=== PATIENT | female | born 1955 | race Caucasian/White ===

== ENCOUNTER 2016-09-26 13:34 | Inpatient (IN) | payer OTHER ==
[2016-09-26] VITALS (9 sets, daily range): BP systolic 116–139; BP diastolic 65–82; PULSE 70–78; TEMP 36.4–37; O2SAT 90–96; Ht 160 cm; Wt 72.0 kg
[~2016-09-26] VITALS: Ht 160 cm; Wt 72.0 kg
[2016-09-26] MEDS ORDERED: NURSING VERBAL MED ORDER ONE (14:15)
[2016-09-26] MEDS ORDERED: SIMV40TA2 PO (14:16)
[2016-09-26] MEDS ORDERED: THY/30 PO (14:16)
[2016-09-26] MEDS ORDERED: SERT-234 PO (14:16)
[2016-09-26] MEDS ORDERED: ONDANSETRON INJ 2 MG/ML 2 ML VIAL IV PRN ×2 (14:30→16:00)
[2016-09-26] MEDS ORDERED: NALOXONE HCL 0.4 MG/1 ML VIAL/CARP IV PRN ×2 (14:30→16:00)
[2016-09-26] MEDS: SODIUM CHLORIDE 0.9% 1000ML 1,000 ML IV SCH (15:05)
[2016-09-26] MEDS: MORPHINE SULFATE 1 MG/ML 50 ML PCA SYR IV PRN ×3 (15:09→22:57)
[2016-09-26] MEDS ORDERED: SODIUM CHLORIDE 0.9% 1000ML 1,000 ML IV SCH (15:53)
[2016-09-26] MEDS ORDERED: HYDROmorphone HCL 0.5MG/ML 50 ML CASSETTE IV PRN (16:00)
--- NOTE | 2016-09-26 16:04 | DIAGNOSTIC IMAGING REPORT ---
ULTRASOUND VENOUS DOPPLER LWR EXT BILA CLINICAL HISTORY: Leg swelling. Diminished ambulation. COMPARISON STUDY: No previous studies for comparison. FINDINGS: Real-time and color flow Doppler imaging were performed. Flow was seen within the femoral, popliteal and calf veins with no intraluminal thrombus demonstrated. The saphenous vein is patent. IMPRESSION: No evidence of lower extremity DVT. Electronically signed by: Geremias Solorio M.D. 09/26/2016 4:02 PM Dictated Date/Time: 09/26/2016 4:02 PM
--- NOTE | 2016-09-26 16:21 | DIAGNOSTIC IMAGING REPORT ---
CHEST 2 VIEWS ROUTINE CLINICAL HISTORY: Preoperative chest COMPARISON STUDY: No previous studies for comparison. FINDINGS: The heart is at the upper limits of normal in size. There is no failure. There is no focal pulmonary consolidation. There are no pleural effusions. There is mild interstitial thickening. There is an 8 mm nodule at the right lung base versus vascular summation.[ IMPRESSION: 1. 8 mm nodule at the right lung base versus vascular summation. A nonemergent CT scan is recommended in follow-up. 2. No evidence of focal pulmonary consolidation Electronically signed by: Geremias Solorio M.D. 09/26/2016 4:19 PM Dictated Date/Time: 09/26/2016 4:17 PM
[2016-09-26] MEDS ORDERED: IV FLUIDS COMPLETED PRN (17:00)
[2016-09-26 17:09] LABS: BASO % 0.7 %; BASO ABS # 0.04 K/uL (0-0.2); COMPLETE YES; EOS % 5.7 %; HEMATOCRIT 40.2 % (37-47); IG% 0.3 %; LYMPH % 41.8 %; LYMPH ABS # 2.41 K/uL (1.2-3.4); MEAN CELL VOLUME 92.4 fL (80-100); MEAN CORPUSCULAR HEMOGLOBIN 32.9 pg (25-34); MEAN CORPUSCULAR HGB CONC 35.6 g/dl (32-36); MEAN PLATELET VOLUME 8.8 fL (7.4-10.4); NEUT % 43.5 %; PLATELET COUNT 366 K/uL (130-400); RED BLOOD COUNT 4.35 M/uL (4.2-5.4); WHITE BLOOD COUNT 5.77 K/uL (4.8-10.8)
--- NOTE | 2016-09-26 17:38 | Medical Consult ---
Consultation Date of Consultation: Sep 26, 2016. Attending Physician: Fernando Diaz M.D. Reason for Consultation: Preop clearance History of Present Illness Patient is a pleasant 61 y/o female, with PMHx of hyperlipidemia, hypothyroidism , and depression, consulted for preop clearance. Approximately 6 weeks ago, patient woke up and fell secondary to left lower extremity. She reported to ED in [place], where an MRI was reported as "abnormal" (patient is unsure of medical term/no records available). Since that time, she has been in and out of the hospital due to lower back pain, radiating to left lower extremity w/ numbness/tingling and weakness. She has received Steroid treatment and pain management with little relief in her symptoms. Patient has been following w/ Dr. Diaz and is planning for surgical intervention. Currently, patient states she is comfortable, with no significant pain. She is anxious about the upcoming events. She denies any cardiac history; CAD, MS, heart cath, heart arrhythmia, or ever following with cardiology. She denies any h/o DVT/PE, TIA/ CVA. She denies h/o of COPD/asthma; she does smoke 1 pack per day. She denies any recent hospitalizations due to acute illnesses (excluding current issue). She has had 2 surgeries in the past, hysterectomy and cholecystectomy, and tolerated both well with no complications. +numbness/tingling/weakness to LLE. + muscle/joint pain to lower back. +Anxiety. Patient denies any fever, chills, sweats, lightheadedness, dizziness, vision changes, CP, palpitations, edema, SOB , wheezing, cough, abdominal pain, nausea, vomiting, diarrhea, urinary symptoms , melena, depression, active bleeding, or new skin discoloration/changes. Past Medical/Surgical History Medical hx: Hyperlipidemia Hypothyroidism Depression Surgical hx: Hysterectomy Cholecystectomy Family History Father- Heart disease, TIA Social History Smoking Status: Current Every Day Smoker (1 pack per day) Alcohol Use: occasionally Allergies Coded Allergies: Aspirin (Verified Allergy, Unknown, HIVES, 09/26/16) Caffeine (Verified Allergy, Unknown, ELEVATED HEART RATE, 09/26/16) Penicillins (Verified Allergy, Unknown, HIVES, 09/26/16) Home Medications Reported Home Medications Medications Dose Route/Sig Max Daily Dose Days Date Category Zoloft (Sertraline HCl) 100 Mg Tab 100 Mg PO DAILY 09/26/16 Reported Zocor (Simvastatin) 40 Mg Tab 40 Mg PO QPM 09/26/16 Reported [place] Thyroid (Thyroid) 30 Mg Tab 1 Tab PO DAILY 90 09/26/16 Reported Current Inpatient Medications Current Inpatient Medications Medications (Trade) Dose Ordered Sig/Yinka Route Start Time Stop Time Status Last Admin Dose Admin Naloxone HCl (Narcan Inj) 0.1 mg Q5M PRN IV 09/26/16 14:30 10/10/16 14:29 Morphine Sulfate 50 mg 50 mg PRN PRN IV 09/26/16 14:30 10/10/16 14:29 09/26/16 15:09 50 MG Sodium Chloride (Nss 1000ml) 1,000 ml @ 15 mls/hr Q24H IV 09/26/16 14:30 10/10/16 14:29 09/26/16 15:05 15 MLS/HR Ondansetron HCl (Zofran Inj) 4 mg Q8H PRN IV 09/26/16 14:30 10/26/16 14:29 Acetaminophen (Tylenol Tab) 650 mg Q6H PRN PO 09/26/16 16:00 10/26/16 15:59 Docusate Sodium (coLACE CAP) 100 mg BID PO 09/26/16 21:00 10/26/16 20:59 Oxycodone/ Acetaminophen (Percocet 5-325mg Tab) Moderate to Severe magaly... Q4H PRN PO 09/26/16 16:00 10/10/16 15:59 Sertraline HCl (Zoloft Tab) 100 mg DAILY PO 09/27/16 09:00 10/27/16 08:59 Simvastatin (Zocor Tab) 40 mg QPM PO 09/26/16 21:00 10/26/16 20:59 Thyroid ([place] Thyroid Tab) 30 mg DAILY PO 09/27/16 09:00 10/27/16 08:59 Miscellaneous (Iv Fluids Completed) 1 ea PRN PRN N/A 09/26/16 17:00 09/26/17 16:59 Review of Systems Constitutional: No chills, No fever Respiratory: No cough, No sputum Cardiovascular: No chest pain, No orthopnea Abdomen: + constipation, No nausea, No pain, No vomiting Musculoskeletal: + muscle pain, No joint pain, No swelling Genitourinary - Female: No dysuria, No urinary frequency Neurologic: No memory loss, No paralysis Psychiatric: No anhedonism, No depression symptoms Endocrine: No excessive thirst, No fatigue Physical Exam Date Time Temp Pulse Resp B/P Pulse Ox O2 Delivery O2 Flow Rate FiO2 09/26/16 17:15 36.7 70 18 127/82 94 Room Air 09/26/16 16:22 36.7 70 18 139/81 94 Room Air 09/26/16 16:15 96 Room Air 09/26/16 15:16 37.0 71 16 116/65 96 Room Air 09/26/16 14:37 Room Air 09/26/16 13:50 36.6 78 18 121/77 93 Room Air General Appearance: no apparent distress Head: normocephalic, atraumatic Eyes: normal inspection, PERRL ENT: hearing grossly normal Neck: supple Respiratory/Chest: lungs clear, no respiratory distress, no accessory muscle use Cardiovascular: regular rate, rhythm Abdomen/GI: normal bowel sounds, non tender, soft Back: normal inspection Extremities/Musculoskelatal: no calf tenderness, no pedal edema Neurologic/Psych: alert, normal mood/affect, oriented x 3 Skin: normal color, warm/dry, no rash Laboratory Results Last 24 Hours Test 09/26/16 16:28 White Blood Count 5.77 K/uL Red Blood Count 4.35 M/uL Hemoglobin 14.3 g/dL Hematocrit 40.2 % Mean Corpuscular Volume 92.4 fL Mean Corpuscular Hemoglobin 32.9 pg Mean Corpuscular Hemoglobin Concent 35.6 g/dl Platelet Count 366 K/uL Mean Platelet Volume 8.8 fL Neutrophils (%) (Auto) 43.5 % Lymphocytes (%) (Auto) 41.8 % Monocytes (%) (Auto) 8.0 % Eosinophils (%) (Auto) 5.7 % Basophils (%) (Auto) 0.7 % Neutrophils # (Auto) 2.51 K/uL Lymphocytes # (Auto) 2.41 K/uL Monocytes # (Auto) 0.46 K/uL Eosinophils # (Auto) 0.33 K/uL Basophils # (Auto) 0.04 K/uL RDW Standard Deviation 41.0 fL RDW Coefficient of Variation 12.0 % Immature Granulocyte % (Auto) 0.3 % Immature Granulocyte # (Auto) 0.02 K/uL Assessment & Plan 61 y/o female, with PMHx of hyperlipidemia, hypothyroidism, and depression, consulted for preop clearance for surgical intervention by Dr. Diaz - Pain management as per primary team Preop clearance- after reviewing patient, she is medically acceptable for upcoming procedure: - Stable vitals - EKG- NSR - CXR- 8 mm nodule at the right lung base versus vascular summation. A nonemergent CT scan is recommended in follow-up. No evidence of focal pulmonary consolidation - Lower left extremity US due to edema/diminished ambulation- no evidence of DVT - Labs reviewed- unremarkable Hypothyroidism: Continue Thyroid 30 mg daily Hyperlipidemia: Continue Zocor 40 mg daily Depression: Continue Zoloft 100 mg daily DVT prophylaxis: As per primary team Code Status: LEVEL I, FULL Dispo: From home. Discharge as per primary team Thank you for this consultation. PA Physician Supervision Note: I interviewed and examined the patient. Discussed with Hetal CRUZ and agree with findings and plan as documented in the note. Any exceptions or clarifications are listed here: None Medical assessment suggest is risk minimized and can proceed to surgery at surgery preference vitals are stable car is regular lungs are clear continue maintainence meds and surgery evaluation Documented By: Pa Morgan
[2016-09-26 17:40] LABS: BUN/CREATININE RATIO 13.2 (10-20); CALCIUM 9.4 mg/dl (8.5-10.1); CREATININE 0.77 mg/dl (0.60-1.20); POTASSIUM 3.9 mmol/L (3.5-5.1)
[2016-09-26 17:42] LABS: ALB/GLOB RATIO 0.8 (0.9-2)
[2016-09-26] MEDS ORDERED: TRAZODONE HCL 50 MG TAB PO PRN (20:45)
[2016-09-26] MEDS ORDERED: LORAZEPAM 2 MG/ML 1 ML VIAL IV PRN ×2 (20:45)
[2016-09-26] MEDS: SIMVASTATIN 40 MG TAB PO SCH (20:49)
[2016-09-26] MEDS: DOCUSATE SODIUM 100 MG CAP PO SCH (20:49)
[2016-09-26] MEDS ORDERED: LORAZEPAM INJ 1 MG in SYRINGE 0.5 ML IV PRN (21:00)
[2016-09-26] MEDS: LORAZEPAM 0.5 MG TAB PO PRN (23:41)
[2016-09-27] VITALS (7 sets, daily range): BP systolic 104–110; BP diastolic 66–72; PULSE 70–76; TEMP 36.5–37.1; O2SAT 86–95
[2016-09-27] MEDS: MORPHINE SULFATE 1 MG/ML 50 ML PCA SYR IV PRN ×4 (02:33→23:12)
[2016-09-27] MEDS: DOCUSATE SODIUM 100 MG CAP PO SCH ×2 (09:30→21:57)
[2016-09-27] MEDS: ARMOUR THYROID 30 MG TAB PO SCH (09:30)
[2016-09-27] MEDS: SERTRALINE HCL 100 MG TAB PO SCH (09:31)
--- NOTE | 2016-09-27 14:26 | Progress Note ---
Subjective Date of Service: Sep 27, 2016. Subjective Pt evaluation today including: conversation w/ patient, physical exam, review of inpatient medication list Pain: using WELDING OPERATOR for back pain PO Intake: adequate Voiding: no voiding problems patient still with back pain, WELDING OPERATOR helps plan for possible OR on Thursday no issues overnight discussed finding of possible lung nodule on CXR, recommend CT chest outpatient , she is a smoker Review of Systems Musculoskeletal: + joint pain (back) All Other Systems: Reviewed and Negative Medications Current Inpatient Medications Medications (Trade) Dose Ordered Sig/Yinka Route Start Time Stop Time Status Last Admin Dose Admin Naloxone HCl (Narcan Inj) 0.1 mg Q5M PRN IV 09/26/16 14:30 10/10/16 14:29 Morphine Sulfate 50 mg 50 mg PRN PRN IV 09/26/16 14:30 10/10/16 14:29 09/27/16 07:03 50 MG Sodium Chloride (Nss 1000ml) 1,000 ml @ 15 mls/hr Q24H IV 09/26/16 14:30 10/10/16 14:29 09/26/16 15:05 15 MLS/HR Ondansetron HCl (Zofran Inj) 4 mg Q8H PRN IV 09/26/16 14:30 10/26/16 14:29 09/27/16 12:49 4 MG Acetaminophen (Tylenol Tab) 650 mg Q6H PRN PO 09/26/16 16:00 10/26/16 15:59 Docusate Sodium (coLACE CAP) 100 mg BID PO 09/26/16 21:00 10/26/16 20:59 09/27/16 09:30 100 MG Oxycodone/ Acetaminophen (Percocet 5-325mg Tab) Moderate to Severe magaly... Q4H PRN PO 09/26/16 16:00 10/10/16 15:59 Sertraline HCl (Zoloft Tab) 100 mg DAILY PO 09/27/16 09:00 10/27/16 08:59 09/27/16 09:31 100 MG Simvastatin (Zocor Tab) 40 mg QPM PO 09/26/16 21:00 10/26/16 20:59 09/26/16 20:49 40 MG Thyroid ([place] Thyroid Tab) 30 mg DAILY PO 09/27/16 09:00 10/27/16 08:59 09/27/16 09:30 30 MG Miscellaneous (Iv Fluids Completed) 1 ea PRN PRN N/A 09/26/16 17:00 09/26/17 16:59 Trazodone HCl (Desyrel Tab) 25 mg HS PRN PO 09/26/16 20:45 10/26/16 20:44 09/27/16 01:29 25 MG Lorazepam 0.5 mg 0.5 mg Q6 PRN PO 09/26/16 20:45 10/26/16 20:44 09/26/16 23:41 0.5 MG Lorazepam 0.5 mg/ Syringe 0.5 ml @ 0.5 mls/min Q4H PRN IV 09/26/16 21:00 10/26/16 20:59 Lorazepam/Syringe (Ativan Inj/ Syringe) 1 ml @ 1 mls/min Q4H PRN IV 09/26/16 21:00 10/26/16 20:59 Objective Vital Signs Date Time Temp Pulse Resp B/P Pulse Ox O2 Delivery O2 Flow Rate FiO2 09/27/16 11:42 37.0 70 18 110/68 95 Room Air 09/27/16 09:28 94 Room Air 09/27/16 08:51 Room Air 09/27/16 07:40 36.5 70 18 104/72 94 Room Air 09/27/16 03:28 36.7 71 16 105/72 90 Room Air 09/26/16 23:35 92 Room Air 09/26/16 23:22 36.6 70 16 116/76 90 Room Air 09/26/16 19:30 Room Air 09/26/16 18:18 36.9 71 17 119/79 92 Room Air 09/26/16 18:14 36.4 71 18 126/79 94 Room Air 09/26/16 17:15 36.7 70 18 127/82 94 Room Air 09/26/16 16:22 36.7 70 18 139/81 94 Room Air 09/26/16 16:15 96 Room Air 09/26/16 15:16 37.0 71 16 116/65 96 Room Air 09/26/16 14:37 Room Air Physical Exam General Appearance: WD/WN, no apparent distress Neck: supple, no adenopathy, no JVD, trachea midline Respiratory/Chest: chest non-tender, lungs clear, normal breath sounds, no respiratory distress, no accessory muscle use Cardiovascular: regular rate, rhythm, no edema, no gallop, no JVD, no murmur Abdomen: normal bowel sounds, non tender, soft, no organomegaly Extremities: normal inspection, no pedal edema, no calf tenderness, normal capillary refill, pelvis stable, + pertinent finding (severe back pain, decreased ROM) Neurologic/Psychiatric: accountant tax II-XII nml as tested, no motor/sensory deficits, alert, normal mood/affect, oriented x 3 Skin: normal color, warm/dry, no rash Lymphatic: no adenopathy Laboratory Results Last 24 Hours Test 09/26/16 16:28 White Blood Count 5.77 K/uL Red Blood Count 4.35 M/uL Hemoglobin 14.3 g/dL Hematocrit 40.2 % Mean Corpuscular Volume 92.4 fL Mean Corpuscular Hemoglobin 32.9 pg Mean Corpuscular Hemoglobin Concent 35.6 g/dl Platelet Count 366 K/uL Mean Platelet Volume 8.8 fL Neutrophils (%) (Auto) 43.5 % Lymphocytes (%) (Auto) 41.8 % Monocytes (%) (Auto) 8.0 % Eosinophils (%) (Auto) 5.7 % Basophils (%) (Auto) 0.7 % Neutrophils # (Auto) 2.51 K/uL Lymphocytes # (Auto) 2.41 K/uL Monocytes # (Auto) 0.46 K/uL Eosinophils # (Auto) 0.33 K/uL Basophils # (Auto) 0.04 K/uL RDW Standard Deviation 41.0 fL RDW Coefficient of Variation 12.0 % Immature Granulocyte % (Auto) 0.3 % Immature Granulocyte # (Auto) 0.02 K/uL Sodium Level 142 mmol/L Potassium Level 3.9 mmol/L Chloride Level 107 mmol/L Carbon Dioxide Level 31 mmol/L Anion Gap 4.0 mmol/L Blood Urea Nitrogen 10 mg/dl Creatinine 0.77 mg/dl Est Creatinine Clear Calc Drug Dose 74.8 ml/min Estimated GFR () 98.0 Estimated GFR (Non- 84.5 BUN/Creatinine Ratio 13.2 Random Glucose 94 mg/dl Calcium Level 9.4 mg/dl Total Bilirubin 0.3 mg/dl Aspartate Amino Transf (AST/SGOT) 20 U/L Alanine Aminotransferase (ALT/SGPT) 43 U/L Alkaline Phosphatase 95 U/L Total Protein 8.0 gm/dl Albumin 3.5 gm/dl Globulin 4.5 gm/dl Albumin/Globulin Ratio 0.8 Hepatitis C Antibody Screen NEG Assessment and Plan 61 y/o female, with PMHx of hyperlipidemia, hypothyroidism, and depression, consulted for preop clearance for surgical intervention by Dr. Diaz - Pain management as per primary team, currently on WELDING OPERATOR - surgery tentatively for Friday 09/29 Preop clearance- after reviewing patient, she is medically acceptable for upcoming procedure and currently optimized vitals stable, labs normal, CXR with 8mm nodule right base? see below no evidence of DVT in lower legs acceptable for the OR on Thursday Right lower lung 8mm nodule? she is smoker so high risk for malignancy NEEDS TO HAVE A CT SCAN CHEST OUTPATIENT Hypothyroidism: Continue Thyroid 30 mg daily Hyperlipidemia: Continue Zocor 40 mg daily Depression: Continue Zoloft 100 mg daily DVT prophylaxis: As per primary team Code Status: LEVEL I, FULL Dispo: From home. Discharge as per primary team no acute medical issues, cleared for surgery, will sign off, please re-consult if any new issues arise PLEASE HAVE PATIENT GET OUTPATIENT CT CHEST ONCE BACK HOME
[2016-09-27] MEDS: ACETAMINOPHEN 325 MG TAB PO PRN (14:27)
[2016-09-27] MEDS: LORAZEPAM 0.5 MG TAB PO PRN ×2 (14:27→21:56)
[2016-09-27] MEDS: SODIUM CHLORIDE 0.9% 1000ML 1,000 ML IV SCH (14:28)
[2016-09-27] MEDS: SIMVASTATIN 40 MG TAB PO SCH (21:57)
[2016-09-28] VITALS (7 sets, daily range): BP systolic 108–122; BP diastolic 64–75; PULSE 63–77; TEMP 36.6–37.1; O2SAT 75–96
[2016-09-28] MEDS: MORPHINE SULFATE 1 MG/ML 50 ML PCA SYR IV PRN ×5 (04:50→23:01)
[2016-09-28] MEDS: DOCUSATE SODIUM 100 MG CAP PO SCH ×2 (08:59→20:35)
[2016-09-28] MEDS: ARMOUR THYROID 30 MG TAB PO SCH (08:59)
[2016-09-28] MEDS: SERTRALINE HCL 100 MG TAB PO SCH (08:59)
[2016-09-28] MEDS: LORAZEPAM 0.5 MG TAB PO PRN (10:30)
[2016-09-28] MEDS: SODIUM CHLORIDE 0.9% 1000ML 1,000 ML IV SCH (14:06)
[2016-09-28] MEDS: ACETAMINOPHEN 325 MG TAB PO PRN (14:08)
[2016-09-28] MEDS ORDERED: OPTIRAY 320 IV PRN (16:15)
--- NOTE | 2016-09-28 17:26 | DIAGNOSTIC IMAGING REPORT ---
CHEST CT WITH CONTRAST CT DOSE: 247.15 mGy.cm HISTORY: Abnormal chest x-ray. Possible PULMONARY NODULE TECHNIQUE: Multiaxial CT images of the chest were performed following the intravenous administration of contrast. COMPARISON: Chest 09/26/2016. FINDINGS: There is a 6 mm subpleural nodule within the right upper lobe on image 128. Bilateral lower lobe and lingular linear densities favor subsegmental atelectasis. Mild emphysema. No pneumothorax or pleural effusions. The central airways are patent. A 3 mm nodule within the left upper lobe on image 94. A cluster of tree-in-bud nodules within the left lower lobe medially. This favors mild infectious bronchiolitis. Partially calcified 4 mm subpleural nodule within the right upper lobe on image 77. A formal are subpleural nodule within the right middle lobe on image 151. There are 2 nodules within the right lower lobe on images 132 and 134 which measure up to 3 mm. No fractures within the visualized osseous structures. No mediastinal or hilar lymphadenopathy. The heart is normal in size. Normal caliber thoracic aorta. The main pulmonary arteries are patent. Cholecystectomy. The visualized liver, spleen, and adrenal glands are unremarkable. IMPRESSION: 1. Multiple subcentimeter bilateral indeterminate pulmonary nodules as described above with the largest in the right upper lobe measuring 6 mm. Please refer to the chart below for recommended follow-up. 2. A small cluster of tree-in-bud nodules within the left lower lobe medially. This favors a mild infectious bronchiolitis. 3. Bibasilar densities favor subsegmental atelectasis. 4. Mild emphysema. Please refer to below summary of Fleischner criteria recommendations for follow-up of incidental CT nodules (Carmella Do, Guidelines for management of small pulmonary nodules detected on CT scans: A statement from the Fleischner Society, Radiology 237: [phone].) SOLID NODULES Solitary nodule size: <6 mm * low risk patients: no follow-up needed * high risk patients: optional CT at 12 months Solitary nodule size: 6-8 mm * low risk patients: follow-up at 6-12 months, then consider further follow-up at 18-24 months * high risk patients: initial follow-up CT at 6-12 months and then at 18-24 months if no change Solitary nodule size: >8 mm * either low or high risk patients - consider follow-up CT at 3 months, and/or CT-PET, and/or biopsy Multiple nodules size: <6 mm * low risk patients: no routine follow-up * high risk patients: optional CT at 12 months Multiple nodules size: 6-8 mm * low risk patients: follow-up at 3-6 months, then consider further follow-up at 18-24 months * high risk patients: follow-up at 3-6 months, then at 18-24 months if no change Multiple nodules size: >8 mm * low risk patients: follow-up at 3-6 months, then consider further follow-up at 18-24 months * high risk patients: follow-up at 3-6 months, then at 18-24 months if no change Note: newly detected indeterminate nodule in persons 35 years of age or older. * low risk patients: minimal or absent history of smoking and/or other known risk factors * high risk patients: history of smoking or of other known risk factors (e.g. first degree relative with lung cancer, or exposure to asbestos, radon, uranium) * if a nodule up to 8 mm is partly solid or is ground glass further follow-up is required after 24 months to exclude possible slow growing adenocarcinoma (DAMI) SUBSOLID NODULES Solitary pure ground-glass nodule * nodule size <6 mm - no CT follow-up required * nodule size >=6 mm - follow-up CT at 6-12 months, then every 2 years until 5 years Solitary part-solid nodule * nodule size <6 mm - no CT follow-up required * nodule size >=6 mm - follow-up CT at 3-6 months. If unchanged, and solid component remains <6 mm, then annual follow-up for 5 years Multiple subsolid nodules * nodule size <6 mm - follow-up CT at 3-6 months, consider further follow-up at 2 and 4 years if stable * nodule size >=6 mm - follow-up CT at 3-6 months, subsequent management based on the most suspicious nodule(s) Electronically signed by: Doe Mercado M.D. 09/28/2016 5:24 PM Dictated Date/Time: 09/28/2016 5:17 PM
--- NOTE | 2016-09-28 17:37 | HISTORY & PHYSICAL EXAMINATION ---
DATE OF ADMISSION: 09/26/2016 HISTORY OF PRESENT ILLNESS: This 61-year-old female who presented to the office with 6 weeks of severe left anterior thigh pain. She was seen in the local ER and subsequently treated on an outpatient basis and referred to me for evaluation. An MRI revealed the left L3-L4 foraminal disk herniation and despite oral steroids her pain was poorly controlled. She was using a wheelchair for mobilization due to severe pain when standing and walking. Due to severe pain at the time of presentation, she was admitted to the hospital for pain control. She denies right leg pain. She denies stella numbness. She denies incontinence. PAST MEDICAL HISTORY: Hyperlipidemia, hypothyroidism, depression, hysterectomy, cholecystectomy. SOCIAL HISTORY: The patient is a smoker, a pack a day. ALLERGIES: INCLUDE ASPIRIN, CAFFEINE, PENICILLIN. HOME MEDICATIONS: Zoloft, Zocor, thyroid replacement. REVIEW OF SYSTEMS: The patient denies chest pain, shortness of breath, history of IA, dyspnea on exertion, incontinence. PHYSICAL EXAMINATION: The patient has stable vital signs. She is comfortable, alert and oriented and has normal affect. She answers questions appropriately. She has a regular rate and rhythm. She has equal chest excursion and clear lungs bilaterally. She has nontender hip range of motion in flexion, internal rotation. Negative straight leg raise lower extremities. She has intact strength in both lower extremities. Intact sensation to light touch and symmetric 2+ DTRs of the patella. There is no clonus. She has palpable distal pulses. ASSESSMENT AND PLAN: The patient was admitted for pain control and anticipated surgical intervention. Medicine was consulted for preoperative clearance. Her ultrasound was reviewed and there is no evidence of deep venous thrombosis. Please not on the chest x-ray she did have a nodule in the right lung and CT evaluation was recommended. [id number]
[2016-09-28] MEDS: SIMVASTATIN 40 MG TAB PO SCH (20:35)
[2016-09-28] MEDS: LORAZEPAM INJ 0.5 MG in SYRINGE 0.25 ML IV PRN (23:29)
[2016-09-29] VITALS (8 sets, daily range): BP systolic 98–125; BP diastolic 53–78; PULSE 70–78; TEMP 36.7–37.3; O2SAT 80–96
--- NOTE | 2016-09-29 06:03 | PROGRESS NOTE ---
DATE: 09/27/2016 DATE: 09/27/2016. SUBJECTIVE: Ms. Lau is here complete day 1 after being admitted for pain control from the office yesterday. She has a large foraminal disc herniation and the plan is to remove this earlier next week. Her pain is controlled with a LASER PRINT OPERATOR. She is not nauseous. When she is up and using her bathroom privileges she has noticed that her leg pain is still present. She denies any stella weakness, any loss of bladder or bowel control. PHYSICAL EXAMINATION: VITAL SIGNS: She is afebrile. Vital signs are stable. The patient is alert and oriented. ABDOMEN: Soft, nontender. EXTREMITIES: Calves are supple and nontender. She does have some swelling in the legs however. Strength and sensation are grossly intact. Gait was not observed. ASSESSMENT: The patient presents with sciatica and a large foraminal disc herniation. PLAN: At this point, will continue with GI and DVT prophylaxis and pain control measures. She did have a Doppler study of her legs that was negative for blood clot. Will continue to keep her comfortable. We appreciate medicine's input and she is cleared for surgery. We will see her tomorrow and make plans for intervention.
[2016-09-29] MEDS: MORPHINE SULFATE 1 MG/ML 50 ML PCA SYR IV PRN ×3 (07:02→23:15)
[2016-09-29] MEDS: ARMOUR THYROID 30 MG TAB PO SCH (08:35)
[2016-09-29] MEDS: SERTRALINE HCL 100 MG TAB PO SCH (08:36)
[2016-09-29] MEDS: DOCUSATE SODIUM 100 MG CAP PO SCH ×2 (08:36→20:52)
--- NOTE | 2016-09-29 08:53 | Orthopedic Progress Note ---
Orthopedic Progress Note Date of Service Sep 29, 2016. Subjective Reports: feeling well, using TYPEWRITER ASSEMBLER Objective calves soft nontender, N/V intact, A&O x3 Date Time Temp Pulse Resp B/P Pulse Ox O2 Delivery O2 Flow Rate FiO2 09/29/16 07:55 37.3 73 12 100/68 96 Nasal Cannula 2.0 110/67 09/29/16 07:15 Nasal Cannula 2.0 09/29/16 03:48 37.0 78 16 108/70 80 Room Air 09/29/16 03:48 92 Nasal Cannula 2.0 09/29/16 00:06 Nasal Cannula 2.0 09/28/16 23:00 36.6 63 16 109/64 96 Nasal Cannula 2.0 09/28/16 20:29 37.1 71 14 116/73 93 Nasal Cannula 2.0 09/28/16 17:03 75 Room Air 09/28/16 15:19 Nasal Cannula 1.0 09/28/16 15:13 37.1 72 16 122/72 83 Room Air 09/28/16 12:00 37.0 70 16 109/69 92 Room Air Assessment & Plan Assessment: improved LLE radiculopathy but still on TYPEWRITER ASSEMBLER and symptoms flair with ambulation. Her MRI shows L5-S1 DDD/stenosis and small L L3-4 HNP. Her symptoms are more consistent with L3 than L5 radiculopathy therefore we discussed L L3-4 discectomy with possible fusion Thursday. NPO p MN. CT results noted will need CT f/u in future given smoking hx.
--- NOTE | 2016-09-29 13:20 | Hospitalist Progress Note ---
Hospitalist Progress Note Date of Service Sep 29, 2016. Subjective Pt evaluation today including: conversation w/ patient, lab review Pt seen as I am on incoming service and she is new to me. CHart reviewed. Pt still with significant left lower ext radiculopathy, plan for surgery tomorrow with Dr. Diaz. No CP,SOB, no h/o heart issues. All Other Systems: Reviewed and Negative (except as per hPI) Objective Vital Signs Date Time Temp Pulse Resp B/P Pulse Ox O2 Delivery O2 Flow Rate FiO2 09/29/16 11:48 37.0 70 12 98/78 90 Nasal Cannula 2.0 104/70 09/29/16 08:58 96 Nasal Cannula 2.0 09/29/16 07:55 37.3 73 12 100/68 96 Nasal Cannula 2.0 110/67 09/29/16 07:15 Nasal Cannula 2.0 09/29/16 03:48 37.0 78 16 108/70 80 Room Air 09/29/16 03:48 92 Nasal Cannula 2.0 09/29/16 00:06 Nasal Cannula 2.0 09/28/16 23:00 36.6 63 16 109/64 96 Nasal Cannula 2.0 09/28/16 20:29 37.1 71 14 116/73 93 Nasal Cannula 2.0 09/28/16 17:03 75 Room Air 09/28/16 15:19 Nasal Cannula 1.0 09/28/16 15:13 37.1 72 16 122/72 83 Room Air Physical Exam General Appearance: WD/WN, no apparent distress (except tearful about her situation) Eyes: normal inspection ENT: hearing grossly normal Neck: trachea midline Respiratory/Chest: lungs clear, normal breath sounds, no respiratory distress, no accessory muscle use Cardiovascular: regular rate, rhythm, no edema, no gallop, no murmur Abdomen: normal bowel sounds, non tender, soft, no organomegaly Extremities: non-tender, normal inspection, no pedal edema, no calf tenderness Neurologic/Psychiatric: alert, oriented x 3 Skin: normal color, warm/dry, no rash Assessment and Plan 61 y/o female, with PMHx of hyperlipidemia, hypothyroidism, and depression, consulted for preop clearance for surgical intervention by Dr. Diaz - Pain management as per primary team, currently on LENS BLOCKER - surgery tentatively for Saturday 09/30 Preop clearance- after reviewing patient, she is medically acceptable for upcoming procedure and currently optimized vitals stable, labs normal, CXR with 8mm nodule right base? see below no evidence of DVT in lower legs acceptable for the OR on Thursday Multiple Pulm nodules- she is smoker so high risk for malignancy NEEDS TO HAVE A CT SCAN CHEST OUTPATIENT in 3 months Hypothyroidism: Continue Thyroid 30 mg daily Hyperlipidemia: Continue Zocor 40 mg daily Depression: Continue Zoloft 100 mg daily DVT prophylaxis: As per primary team Code Status: LEVEL I, FULL Dispo: From home. Discharge as per primary team no acute medical issues, cleared for surgery, will sign off, please re-consult if any new issues arise PLEASE HAVE PATIENT GET OUTPATIENT CT CHEST in 3 MONTHS
[2016-09-29] MEDS: SODIUM CHLORIDE 0.9% 1000ML 1,000 ML IV SCH (13:38)
--- NOTE | 2016-09-29 16:46 | Anesthesiology Progress Note ---
Anesthesia Progress Note Date of Service Sep 29, 2016. Progress Notes The patient is a 61 y/o female scheduled for L3/4 microdiscectomy possible fusion by Dr. Diaz tomorrow. The patient has had pain down her L leg and numbness down her R leg. She has had to use a walker to get around. Other PMH includes smoking, mild emphysema, pulmonary nodules on Chest CT, dyslipidemia, hypothyroidism, and depression. She has had no problems with anesthesia. EKG showed NSR. CXR showed a pulmonary nodule with a followup chest CT showing multiple nodules and emphysema. Labs were normal. On exam the patient had good neck ROM and was a MP 2. Lungs were clear and heart was RRR. Carotids were negative for bruits. The patient was consented to GA with ETT. She was counseled to remain NPO after midnight except for sips of water with pills.
[2016-09-29] MEDS: SIMVASTATIN 40 MG TAB PO SCH (20:52)
[2016-09-30] VITALS (7 sets, daily range): BP systolic 105–135; BP diastolic 65–80; PULSE 67–91; TEMP 36.4–36.9; O2SAT 89–95
[2016-09-30] MEDS: LORAZEPAM INJ 0.5 MG in SYRINGE 0.25 ML IV PRN (00:40)
[2016-09-30] MEDS: MORPHINE SULFATE 1 MG/ML 50 ML PCA SYR IV PRN (07:01)
[2016-09-30] MEDS: ARMOUR THYROID 30 MG TAB PO SCH (08:20)
[2016-09-30] MEDS: DOCUSATE SODIUM 100 MG CAP PO SCH ×2 (08:20→20:39)
[2016-09-30] MEDS: SERTRALINE HCL 100 MG TAB PO SCH (08:20)
--- NOTE | 2016-09-30 14:19 | History & Physical Bridge Note ---
H&P Re-Evaluation Bridge Note: I have examined the patient, reviewed the History & Physical and in the interval since the performance of the History & Physical I have noted the following changes of clinical significance: Plan is for L L3-4 microdiscectomy with a possible fusion if a facetectomy is necessary to extirpate disc fragment. No changes noted
[2016-09-30] MEDS ORDERED: PROPOFOL IV EMULSION 10 MG/ML 20 ML VIAL IV ONE (14:37)
[2016-09-30] MEDS ORDERED: MIDAZOLAM HCL 1 MG/ML 2ML VIAL ONE (14:37)
[2016-09-30] MEDS ORDERED: DEXAMETHASONE SOD INJ 4 MG/ML VIAL ONE (14:37)
[2016-09-30] MEDS ORDERED: ONDANSETRON INJ 2 MG/ML 2 ML VIAL ONE (14:37)
[2016-09-30] MEDS ORDERED: ROCURONIUM BROMIDE 10 MG/ML 5 ML VIAL ONE (14:37)
[2016-09-30] MEDS ORDERED: FENTANYL CITRATE INJ 50 MCG/1 ML 2 ML VIAL ONE ×2 (14:37)
[2016-09-30] MEDS ORDERED: LIDOCAINE HCL 2% 2 ML VIAL (20MG/ML) ONE (14:37)
[2016-09-30] MEDS ORDERED: ATROPINE SULFATE 0.1 MG/ML 5ML SYR IV PRN (14:45)
[2016-09-30] MEDS ORDERED: EpHEDrine SULFATE INJ 50 MG/ML AMP IV PRN (14:45)
[2016-09-30] MEDS ORDERED: PHENYLEPHRINE 100MCG/ML 5ML SYR IV PRN (14:45)
[2016-09-30] MEDS ORDERED: ONDANSETRON INJ 2 MG/ML 2 ML VIAL IV PRN (14:45)
[2016-09-30] MEDS ORDERED: BUPIVACAINE/EPINEPHRINE 0.5% MPF 1:200,000 30 ML VIAL ONE (14:49)
[2016-09-30] MEDS ORDERED: THROMBIN 5000 UNITS KIT ONE (14:49)
[2016-09-30] MEDS ORDERED: THROMBIN FOR SOLN 20000 UNIT KIT ONE (14:49)
[2016-09-30] MEDS ORDERED: HEPARIN SOD (PORCINE) 1000 UNIT/ML 10 ML VIAL ONE (14:49)
[2016-09-30] MEDS ORDERED: BACITRACIN 50000 UNIT VIAL ONE (14:50)
[2016-09-30] MEDS ORDERED: CLINDAMYCIN 600 MG/54 ML D5W IV ONE (15:09)
[2016-09-30] MEDS ORDERED: NURSING VERBAL MED ORDER ONE (15:15)
[2016-09-30] MEDS ORDERED: NEOSTIGMINE METHYLSULFATE 1 MG/ML 10ML VIAL ONE (15:40)
[2016-09-30] MEDS ORDERED: GLYCOPYRROLATE INJ 0.2 MG/ML VIAL ONE (15:40)
[2016-09-30] MEDS ORDERED: HYDROmorphone INJ 2 MG/ML SYR/VIAL ONE (15:41)
[2016-09-30] MEDS: SODIUM CHLORIDE 0.9% 1000ML 1,000 ML IV SCH (15:54)
--- NOTE | 2016-09-30 16:05 | Discharge Instructions ---
Discharge Instructions Date of Service Sep 30, 2016. Admission Reason for Admission: Lumbar Spine Pain Discharge Discharge Diagnosis / Problem: lumbar HNP Discharge Goals Goal(s): Decrease discomfort Activity Recommendations Activity Limitations: per Instructions/Follow-up section . Instructions / Follow-Up Instructions / Follow-Up ACTIVITY RECOMMENDATIONS: SELF CARE INSTRUCTIONS AFTER A LAMINECTOMY 1. No prolonged sitting (less than 30 minutes for the first 3 weeks after surgery). 2. No bending, lifting more than 5 pounds, or twisting (roll like a log when turning in bed). 3. You may shower 3 days after surgery if no drainage from wound. Thoroughly dry wound. Do not soak in the tub. 4. Please walk as much as you can for exercise. Gradually increase the distance that you walk as your endurance increases. 5. You may drive in 7-10 days if you are comfortable and no longer requiring pain medications. SPECIAL CARE INSTRUCTIONS: VERY IMPORTANT TO READ AND REVIEW A. Your surgical incision has been closed with a cosmetic suture under the skin that will dissolve in about 6 weeks. In 14 days, you can use a pair of clean scissors and cut the suture that is left outside of the skin at the ends of your incision. B. Complications are uncommon, but please contact us if you have any signs or symptoms of: 1. wound infection (fever higher than 102.5 degrees F, redness, separation of wound, drainage, or increasing pain from the incision) 2. blood clots in legs (pain, swelling, redness and warmth in legs) 3. urinary tract infection (fever higher than 102.5 degrees, burning upon urination or increased frequency of urination) 4. nerve problems (inability to walk on your toes or heels, numbness, loss of bowel or bladder control) 5. any other symptoms that concern you. C. Please call the office at if you have any concerns or questions about your operation or recovery. MANAGING PAIN AFTER SPINAL SURGERY 1. Narcotic medication is intended for short-term use and will be provided for surgical pain. Surgical pain usually lasts for a period of 4-6 weeks. Narcotic medication includes Percocet, Vicodin, Darvocet, Tylenol #3 or Lortab. 2. Longer-term pain is more appropriately treated with non-narcotic medication such as Tylenol ES. 3. Muscle spasm is not appropriately treated with narcotics. Muscle relaxers such as Soma, Flexeril or Skelaxin can be used along with Tylenol ES. 4. Remember that we all live with some "aches and pains". This is not unusual or uncommon after an injury or as we get older. 5. We will provide appropriate medication within the normal guidelines of their prescribed use. We will also be very cautious and aware of potential abuse and extended duration of patients' medication needs. 6. Please allow 2-3 days to process refills. Prescriptions will not be mailed but must be picked up at the office. FOLLOW UP VISIT: Keep your scheduled follow-up appointment. Any questions, please call the office at . Current Hospital Diet Patient's current hospital diet: Regular Diet Discharge Diet Recommended Diet: Regular Diet Pending Studies Studies pending at discharge: yes List of pending studies: She requires a follow-up chest CT in 3 months due to multiple pulmonary nodules noted on inpatient scan and smoking history. Medical Emergencies . Who to Call and When: Medical Emergencies: If at any time you feel your situation is an emergency, please call 911 immediately. . Non-Emergent Contact Non-Emergency issues call your: Surgeon . "Provider Documentation" section prepared by Fernando Diaz. VTE Core Measure Inpt VTE Proph given/why not?: SCD's [place] Drug Monitoring Program Search Results: patient reviewed within database, no issues identified
[2016-09-30] MEDS ORDERED: OXYC-57 PO (16:07)
[2016-09-30] MEDS ORDERED: ALBUTEROL 0.083% NEBU SOLN 3 ML VIAL INH STA (16:25)
[2016-09-30] MEDS: HYDROmorphone INJ 2 MG/ML SYR/VIAL IV PRN ×8 (17:00→17:35)
--- NOTE | 2016-09-30 17:30 | Anesthesiology Progress Note ---
Anesthesia Post Op Note Date & Time Sep 30, 2016 at 17:30 Vital Signs Pain Intensity: 7 Vital Signs Past 12 Hours Date Time Temp Pulse Resp B/P Pulse Ox O2 Delivery O2 Flow Rate FiO2 09/30/16 17:15 137/80 09/30/16 17:14 73 27 09/30/16 17:14 72 27 95 09/30/16 17:11 139/94 09/30/16 17:09 70 17 09/30/16 17:09 70 17 98 09/30/16 17:08 70 14 98 09/30/16 17:08 70 14 09/30/16 17:05 150/86 09/30/16 17:03 74 15 99 09/30/16 17:03 74 15 09/30/16 17:00 150/77 09/30/16 16:58 76 16 09/30/16 16:58 76 16 98 09/30/16 16:55 148/92 09/30/16 16:53 81 12 97 09/30/16 16:53 83 12 09/30/16 16:52 162/99 09/30/16 16:48 77 27 09/30/16 16:48 77 27 100 09/30/16 16:45 153/82 09/30/16 16:43 73 13 09/30/16 16:43 73 13 100 09/30/16 16:40 152/80 09/30/16 16:38 76 14 09/30/16 16:38 76 14 99 09/30/16 16:35 142/81 09/30/16 16:33 73 10 09/30/16 16:33 73 10 98 09/30/16 16:30 136/80 09/30/16 16:28 89 14 99 09/30/16 16:28 90 14 09/30/16 16:25 137/78 09/30/16 16:23 86 8 09/30/16 16:23 36.4 91 16 139/77 100 Mask 10 09/30/16 16:23 86 8 139/77 99 09/30/16 07:15 36.9 71 18 111/73 92 Nasal Cannula 2.0 09/30/16 07:15 Room Air Notes Mental Status: alert / awake / arousable, participated in evaluation Pt Amnestic to Procedure: Yes Nausea / Vomiting: adequately controlled Pain: adequately controlled Airway Patency, RR, SpO2: stable & adequate BP & HR: stable & adequate Hydration State: stable & adequate Anesthetic Complications: no major complications apparent
[2016-09-30] MEDS: OXYCODONE/ACETAMINOPHEN 5-325 TAB PO PRN (18:40)
[2016-09-30] MEDS: SIMVASTATIN 40 MG TAB PO SCH (20:39)
[2016-09-30] MEDS: LORAZEPAM INJ 1 MG in SYRINGE 0 ML IV PRN (21:32)
[2016-09-30] MEDS: DEXAMETHASONE INJ 6 MG in SYRINGE 0 ML IV SCH (21:32)
[2016-10-01] VITALS (16 sets, daily range): BP systolic 107–138; BP diastolic 56–83; PULSE 69–95; TEMP 36.8–36.9; O2SAT 87–97
[2016-10-01] MEDS: OXYCODONE/ACETAMINOPHEN 5-325 TAB PO PRN ×5 (02:14→23:41)
[2016-10-01] MEDS: DEXAMETHASONE INJ 6 MG in SYRINGE 0 ML IV SCH ×2 (05:43→13:43)
[2016-10-01] MEDS: LORAZEPAM INJ 1 MG in SYRINGE 0 ML IV PRN (05:43)
--- NOTE | 2016-10-01 09:00 | Anesthesiology Progress Note ---
Anesthesia Post Op Note Date & Time Oct 01, 2016 at 08:59 Vital Signs Vital Signs Past 12 Hours Date Time Temp Pulse Resp B/P Pulse Ox O2 Delivery O2 Flow Rate FiO2 10/01/16 07:45 94 Nasal Cannula 2.0 10/01/16 07:23 36.9 69 20 138/83 94 Nasal Cannula 2.0 10/01/16 05:55 91 Nasal Cannula 2.0 10/01/16 05:54 87 Room Air 10/01/16 03:54 36.9 72 16 119/75 94 Nasal Cannula 2.0 09/30/16 23:28 36.7 80 16 135/80 92 Nasal Cannula 2.0 09/30/16 21:10 36.9 91 16 122/75 95 Nasal Cannula 2.0 Notes Mental Status: alert / awake / arousable, participated in evaluation Pt Amnestic to Procedure: Yes Nausea / Vomiting: adequately controlled Pain: adequately controlled Airway Patency, RR, SpO2: stable & adequate BP & HR: stable & adequate Hydration State: stable & adequate Anesthetic Complications: no major complications apparent
[2016-10-01] MEDS: SERTRALINE HCL 100 MG TAB PO SCH (09:20)
[2016-10-01] MEDS: DOCUSATE SODIUM 100 MG CAP PO SCH ×2 (09:20→21:00)
[2016-10-01] MEDS: ARMOUR THYROID 30 MG TAB PO SCH (09:20)
--- NOTE | 2016-10-01 10:35 | Orthopedic Progress Note ---
Orthopedic Progress Note Date of Service Oct 01, 2016. Subjective Post OP Day: 1 Reports: feeling well, pain controlled w PO medications, Denies: SOB, calf pain , chest pain, complaints, light headedness, nausea / vomiting, using SIDING APPLICATOR Objective calves soft nontender, N/V intact, dressing C/D/I, A&O x3 Date Time Temp Pulse Resp B/P Pulse Ox O2 Delivery O2 Flow Rate FiO2 10/01/16 09:23 92 Nasal Cannula 1.0 10/01/16 07:45 94 Nasal Cannula 2.0 10/01/16 07:23 36.9 69 20 138/83 94 Nasal Cannula 2.0 10/01/16 05:55 91 Nasal Cannula 2.0 10/01/16 05:54 87 Room Air 10/01/16 03:54 36.9 72 16 119/75 94 Nasal Cannula 2.0 09/30/16 23:28 36.7 80 16 135/80 92 Nasal Cannula 2.0 09/30/16 21:10 36.9 91 16 122/75 95 Nasal Cannula 2.0 09/30/16 20:11 36.4 76 16 124/73 89 Room Air 09/30/16 19:25 Nasal Cannula 2.0 09/30/16 19:19 36.9 69 16 130/76 91 Nasal Cannula 2.0 09/30/16 18:30 Room Air 09/30/16 18:10 36.8 70 16 135/78 94 Room Air 2.0 09/30/16 17:43 36.4 71 16 09/30/16 17:41 73 10 09/30/16 17:41 73 10 94 09/30/16 17:40 123/73 09/30/16 17:36 71 16 09/30/16 17:36 71 16 125/68 93 09/30/16 17:31 67 16 94 09/30/16 17:31 68 16 09/30/16 17:30 126/73 09/30/16 17:26 69 16 95 09/30/16 17:26 69 16 09/30/16 17:25 127/79 09/30/16 17:21 72 16 131/68 97 09/30/16 17:21 72 16 09/30/16 17:16 70 20 09/30/16 17:16 70 20 96 09/30/16 17:15 137/80 09/30/16 17:14 73 27 09/30/16 17:14 72 27 95 09/30/16 17:11 139/94 09/30/16 17:09 70 17 09/30/16 17:09 70 17 98 09/30/16 17:08 70 14 98 09/30/16 17:08 70 14 09/30/16 17:05 150/86 09/30/16 17:03 74 15 99 09/30/16 17:03 74 15 09/30/16 17:00 150/77 09/30/16 16:58 76 16 09/30/16 16:58 76 16 98 09/30/16 16:55 148/92 09/30/16 16:53 81 12 97 09/30/16 16:53 83 12 09/30/16 16:52 162/99 09/30/16 16:48 77 27 09/30/16 16:48 77 27 100 09/30/16 16:45 153/82 09/30/16 16:43 73 13 09/30/16 16:43 73 13 100 09/30/16 16:40 152/80 09/30/16 16:38 76 14 09/30/16 16:38 76 14 99 09/30/16 16:35 142/81 09/30/16 16:33 73 10 09/30/16 16:33 73 10 98 09/30/16 16:30 136/80 09/30/16 16:28 89 14 99 09/30/16 16:28 90 14 09/30/16 16:25 137/78 09/30/16 16:23 86 8 09/30/16 16:23 36.4 91 16 139/77 100 Mask 10 09/30/16 16:23 86 8 139/77 99 Assessment & Plan Assessment: preop symptoms improved but is now requiring oxygen to maintain SpO2, probably atelectasis but will check cxr and reconsult medicine prior to d/c home.
--- NOTE | 2016-10-01 11:11 | [facility] Post Operative Brief Note ---
Immediate Operative Summary Operative Date Oct 01, 2016. Pre-Operative Diagnosis Left L3-4 herniated nucleus pulposus Post-Operative Diagnosis Same as pre-operative diagnosis Procedure(s) Performed Left L3-L4 Microdiscectomy Surgeon Dr. Fernando Diaz Portable Sawyer Surgeon(s) Tommie Parekh PA-C Estimated Blood Loss 30ml Findings dict Specimens None per surgeon
--- NOTE | 2016-10-01 11:25 | OPERATIVE REPORT ---
DATE OF OPERATION: 09/30/2016 PREOPERATIVE DIAGNOSES: Left L3-L4 microdiscectomy. PREOPERATIVE DIAGNOSIS: Left L3-L4 herniated nucleus pulposus. POSTOPERATIVE DIAGNOSIS: Left L3-L4 herniated nucleus pulposus. SURGEON: Dr. Diaz. GYRO MECHANIC: Tommie Parekh PA-C. Please note he participated in all portions of the procedure and was critical for performance of the procedure, participated in positioning, prepping, draping, retraction, and wound closure. ANESTHESIA: General endotracheal anesthesia. PROCEDURE: After identification of patient and operative level, she was brought to the OR where she underwent induction of general anesthesia. She was then positioned prone on the [facility] OR table. All bony prominences were well padded. Care was taken to avoid pressure on the periorbital area. Lumbosacral area was sterilely prepped and draped in usual fashion. Antibiotics were administered. Time-out was performed. Level was confirmed and skin incision was localized with lateral fluoroscopy and a spinal needle. Skin was instilled with Marcaine and skin incision was made from spinous process of L3 and L4 and exposed the left L3-L4 interlaminar window. I placed a belt loop machine operator retractor, confirmed level with a marker at this lamina of L3 and then did a small laminotomy under the caudal edge of L3. I took down ligament flavum and identified the traversing nerve root and protected it and then identified the paracentral disk protrusion extending into the foramen at L3-L4. I made a vertical annulotomy and removed loose disk fragments deep to the annulus thereby decompressing with the L3 and L4 nerve roots. I could pass the probe along each nerve root and after discectomy and confirmed no further neural compression was present. I then irrigated with bacitracin solution, applied FloSeal for hemostasis and closed in layered fashion. All sponge and needle counts were correct at the end of the case. I attest to the content of the Intraoperative Record and any orders documented therein. Any exceptio ns are noted below.
--- NOTE | 2016-10-01 11:51 | DIAGNOSTIC IMAGING REPORT ---
CHEST 2 VIEWS ROUTINE CLINICAL HISTORY: Hypoxia. COMPARISON STUDY: Chest radiograph September 26, [address] September 28, 2016. FINDINGS: Lung volumes are normal. No pneumothorax or pleural effusion is present. Linear right midlung opacity suggests atelectasis. Hazy left basilar opacity favors atelectasis. Cardiomediastinal silhouette is normal. There is no evidence of pulmonary edema. IMPRESSION: Bibasilar opacities suggestive of atelectasis. Electronically signed by: Geoffrey Perea M.D. 10/01/2016 11:48 AM Dictated Date/Time: 10/01/2016 11:47 AM
[2016-10-01] MEDS ORDERED: ALBUT/IPRATROP 3MG/0.5MG NEB 3 ML VIAL INH ONE (12:20)
--- NOTE | 2016-10-01 12:32 | Hospitalist Progress Note ---
Hospitalist Progress Note Date of Service Oct 01, 2016. Subjective Pt evaluation today including: conversation w/ patient, conversation w/ family , physical exam, review of inpatient medication list I was reconsulted for post-op hypoxemia. SHe had a discectomy 1 day ago. Pt was to be discharged today but was having persistent O2 requirement. She has some atelectasis on her CXR. She denies SOB at rest or with ambulation. She has been walking around her room and using IS as prescribed. She denies cough or sputum production, no fevers, no chest pain. Constitutional: No chills, No fever Eyes: No problem reported ENT: No problem reported Respiratory: No cough, No dyspnea on exertion, No shortness of breath, No wheezing Cardiovascular: No chest pain, No edema Abdomen: No pain, No problem reported Musculoskeletal: + problem reported (lower back pain) Female : No problem reported Neurologic: No problem reported Psychiatric: No problem reported Heme: No problem reported Endo: No problem reported Skin: No problem reported All Other Systems: Reviewed and Negative Objective Vital Signs Date Time Temp Pulse Resp B/P Pulse Ox O2 Delivery O2 Flow Rate FiO2 10/01/16 11:44 36.9 75 19 115/72 93 Nasal Cannula 2.0 10/01/16 09:23 92 Nasal Cannula 1.0 10/01/16 07:45 94 Nasal Cannula 2.0 10/01/16 07:23 36.9 69 20 138/83 94 Nasal Cannula 2.0 10/01/16 05:55 91 Nasal Cannula 2.0 10/01/16 05:54 87 Room Air 10/01/16 03:54 36.9 72 16 119/75 94 Nasal Cannula 2.0 09/30/16 23:28 36.7 80 16 135/80 92 Nasal Cannula 2.0 09/30/16 21:10 36.9 91 16 122/75 95 Nasal Cannula 2.0 09/30/16 20:11 36.4 76 16 124/73 89 Room Air 09/30/16 19:25 Nasal Cannula 2.0 09/30/16 19:19 36.9 69 16 130/76 91 Nasal Cannula 2.0 09/30/16 18:30 Room Air 09/30/16 18:10 36.8 70 16 135/78 94 Room Air 2.0 09/30/16 17:43 36.4 71 16 09/30/16 17:41 73 10 09/30/16 17:41 73 10 94 09/30/16 17:40 123/73 09/30/16 17:36 71 16 09/30/16 17:36 71 16 125/68 93 09/30/16 17:31 67 16 94 09/30/16 17:31 68 16 09/30/16 17:30 126/73 09/30/16 17:26 69 16 95 09/30/16 17:26 69 16 09/30/16 17:25 127/79 09/30/16 17:21 72 16 131/68 97 09/30/16 17:21 72 16 09/30/16 17:16 70 20 09/30/16 17:16 70 20 96 09/30/16 17:15 137/80 09/30/16 17:14 73 27 09/30/16 17:14 72 27 95 09/30/16 17:11 139/94 09/30/16 17:09 70 17 09/30/16 17:09 70 17 98 09/30/16 17:08 70 14 98 09/30/16 17:08 70 14 09/30/16 17:05 150/86 09/30/16 17:03 74 15 99 09/30/16 17:03 74 15 09/30/16 17:00 150/77 09/30/16 16:58 76 16 09/30/16 16:58 76 16 98 09/30/16 16:55 148/92 09/30/16 16:53 81 12 97 09/30/16 16:53 83 12 09/30/16 16:52 162/99 09/30/16 16:48 77 27 09/30/16 16:48 77 27 100 09/30/16 16:45 153/82 09/30/16 16:43 73 13 09/30/16 16:43 73 13 100 09/30/16 16:40 152/80 09/30/16 16:38 76 14 09/30/16 16:38 76 14 99 09/30/16 16:35 142/81 09/30/16 16:33 73 10 09/30/16 16:33 73 10 98 09/30/16 16:30 136/80 09/30/16 16:28 89 14 99 09/30/16 16:28 90 14 09/30/16 16:25 137/78 09/30/16 16:23 86 8 09/30/16 16:23 36.4 91 16 139/77 100 Mask 10 09/30/16 16:23 86 8 139/77 99 Physical Exam General Appearance: WD/WN, no apparent distress (sitting on bed, wearing NC) Eyes: normal inspection, sclerae normal ENT: hearing grossly normal, pharynx normal Neck: trachea midline Respiratory/Chest: no respiratory distress, no accessory muscle use, + crackles (at bases bilaterally that clear with deep inspiration, otherwise clear) Cardiovascular: regular rate, rhythm, no edema, no gallop, no murmur Abdomen: normal bowel sounds, non tender, soft Extremities: non-tender, normal inspection, no pedal edema, no calf tenderness Neurologic/Psychiatric: alert, normal mood/affect, oriented x 3 Skin: normal color, warm/dry, no rash Assessment and Plan 61 y/o female, with PMHx of hyperlipidemia, hypothyroidism, smoking, and depression, consulted for preop clearance for surgical intervention by Dr. Diaz. Now POD#1 s/p Left L3-L4 Microdiscectomy and with persistent hypoxemia. Left L3-L4 Microdiscectomy-POD#1-stable and was ready for discharge from Ortho perspective - Pain management as per primary team - f/u with Ortho as planned after discharge -restrictions as per Ortho team Acute hypoxemic respiratory failure, Current smoker-still requiring O2 to maintain sats above 88% both preoperatively and postoperatively. Has atelectasis on CXR and evidence of this on physical exam as well. Suspect has underlying COPD given h/o smoking.She has been quite sedentary for the last 6 weeks since her back pain started, using wheelchair at home. -start scheduled Duonebs -already received dexamethasone which should also help with inflammation, then will give short burst of prednisone 40mg daily x 5 days po starting tomorrow -wean O2 as able to Multiple Pulm nodules seen on CT Chest, the largest is 6 mm- she is a smoker so high risk for malignancy NEEDS TO HAVE A CT SCAN CHEST OUTPATIENT in 3 months Hypothyroidism: stable -Continue Thyroid 30 mg daily Hyperlipidemia-stable -Continue Zocor 40 mg daily Depression-stable -Continue Zoloft 100 mg daily DVT prophylaxis: SCDs Code Status: LEVEL I, FULL Dispo: From home. Discharge likely tomorrow if O2 requirement improved
[2016-10-01] MEDS: LORAZEPAM 1 MG TAB PO PRN ×2 (13:45→21:25)
[2016-10-01] MEDS: ALBUT/IPRATROP 3MG/0.5MG NEB 3 ML VIAL INH SCH ×2 (14:16→19:24)
[2016-10-01] MEDS ORDERED: MAGNESIUM HYDROXIDE SUSP 30 ML UDC PO ONE (15:45)
[2016-10-01] MEDS ORDERED: MINERAL OIL ENEMA 133 ML BTL PR PRN (18:45)
[2016-10-01] MEDS: SIMVASTATIN 40 MG TAB PO SCH (21:00)
[2016-10-02 03:51] VITALS: O2SAT 92
[2016-10-02] MEDS: LORAZEPAM 1 MG TAB PO PRN (07:24)
[2016-10-02 07:32] VITALS: BP 119/62; PULSE 72; TEMP 36.8; O2SAT 92
[2016-10-02 07:55] VITALS: PULSE 87; O2SAT 93
[2016-10-02] MEDS: ALBUT/IPRATROP 3MG/0.5MG NEB 3 ML VIAL INH SCH ×2 (07:55→12:29)
[2016-10-02] MEDS: ARMOUR THYROID 30 MG TAB PO SCH (09:35)
[2016-10-02] MEDS: SERTRALINE HCL 100 MG TAB PO SCH (09:35)
[2016-10-02] MEDS: DOCUSATE SODIUM 100 MG CAP PO SCH (09:35)
--- NOTE | 2016-10-02 09:37 | Orthopedic Progress Note ---
Orthopedic Progress Note Date of Service Oct 02, 2016. Subjective Post OP Day: 2 Reports: feeling well, pain controlled w PO medications, Denies: SOB, calf pain , chest pain, complaints, light headedness, nausea / vomiting, using MILK BOTTLER Objective calves soft nontender, N/V intact, dressing C/D/I, A&O x3 Date Time Temp Pulse Resp B/P Pulse Ox O2 Delivery O2 Flow Rate FiO2 10/02/16 07:55 87 18 93 Room Air 10/02/16 07:32 36.8 72 17 119/62 92 Room Air 10/02/16 07:15 Room Air 10/02/16 03:51 92 Room Air 10/01/16 23:30 96 Room Air 10/01/16 23:20 36.9 77 16 107/56 93 Room Air 10/01/16 22:00 94 Room Air 10/01/16 20:59 93 Room Air 10/01/16 20:00 94 Room Air 10/01/16 19:24 84 18 92 Room Air 10/01/16 17:00 93 Nasal Cannula 1.0 10/01/16 16:00 Nasal Cannula 1.0 10/01/16 15:14 36.8 95 18 117/64 92 Nasal Cannula 1.0 10/01/16 14:16 71 18 97 Nasal Cannula 2.0 10/01/16 11:44 36.9 75 19 115/72 93 Nasal Cannula 2.0 Assessment & Plan Assessment: doing better today sats improved ambulating of O2, will d/c if ok with medicine.
[2016-10-02] MEDS ORDERED: CLC100 PO (09:46)
[2016-10-02] MEDS ORDERED: PRVHFAIN INH (09:46)
[2016-10-02] MEDS ORDERED: PRD20 PO (09:46)
--- NOTE | 2016-10-02 09:53 | Hospitalist Progress Note ---
Hospitalist Progress Note Date of Service Oct 02, 2016. Subjective Pt evaluation today including: conversation w/ patient, physical exam, lab review, review of studies, review of inpatient medication list Much improved, still c/o constipation despite MOM and Mineral oil enema yesterday. Anxious to go home to have a BM. Denies SOB, no CP. Two step test showed 95% POx with ambulation without oxygen. All Other Systems: Reviewed and Negative Objective Vital Signs Date Time Temp Pulse Resp B/P Pulse Ox O2 Delivery O2 Flow Rate FiO2 10/02/16 07:55 87 18 93 Room Air 10/02/16 07:32 36.8 72 17 119/62 92 Room Air 10/02/16 07:15 Room Air 10/02/16 03:51 92 Room Air 10/01/16 23:30 96 Room Air 10/01/16 23:20 36.9 77 16 107/56 93 Room Air 10/01/16 22:00 94 Room Air 10/01/16 20:59 93 Room Air 10/01/16 20:00 94 Room Air 10/01/16 19:24 84 18 92 Room Air 10/01/16 17:00 93 Nasal Cannula 1.0 10/01/16 16:00 Nasal Cannula 1.0 10/01/16 15:14 36.8 95 18 117/64 92 Nasal Cannula 1.0 10/01/16 14:16 71 18 97 Nasal Cannula 2.0 10/01/16 11:44 36.9 75 19 115/72 93 Nasal Cannula 2.0 Physical Exam General Appearance: WD/WN, no apparent distress Eyes: normal inspection, sclerae normal ENT: hearing grossly normal Neck: trachea midline Respiratory/Chest: lungs clear, normal breath sounds, no respiratory distress, no accessory muscle use Cardiovascular: regular rate, rhythm, no edema, no gallop, no murmur Abdomen: normal bowel sounds, non tender, soft Extremities: non-tender, normal inspection, no pedal edema, no calf tenderness Neurologic/Psychiatric: alert, normal mood/affect, oriented x 3 Skin: normal color, warm/dry, no rash Assessment and Plan 61 y/o female, with PMHx of hyperlipidemia, hypothyroidism, smoking, and depression, consulted for preop clearance for surgical intervention by Dr. Diaz. Now POD#1 s/p Left L3-L4 Microdiscectomy and with persistent hypoxemia. Left L3-L4 Microdiscectomy-POD#2-stable and was ready for discharge from Ortho perspective - Pain management as per primary team - f/u with Ortho as planned after discharge -restrictions as per Ortho team Acute hypoxemic respiratory failure, Current smoker-previously requiring O2 to maintain sats above 88% both preoperatively and postoperatively. Now resolved with bronchodilators, IS, and IV Decadron. Had atelectasis on CXR and evidence of this on physical exam as well. Suspect has underlying COPD given h/o smoking.She has been quite sedentary for the last 6 weeks since her back pain started, using wheelchair at home. -ok for dc to home-d/w Dr. Diaz -will Rx albuterol HFA for home use for 2 days ATC and then prn -recommend PFTs with PCP -already received dexamethasone which should also help with inflammation, then will give short burst of prednisone 40mg daily x 3 more days Multiple Pulm nodules seen on CT Chest, the largest is 6 mm- she is a smoker so high risk for malignancy NEEDS TO HAVE A CT SCAN CHEST OUTPATIENT in 3 months Hypothyroidism: stable -Continue Thyroid 30 mg daily Hyperlipidemia-stable -Continue Zocor 40 mg daily Depression-stable -Continue Zoloft 100 mg daily DVT prophylaxis: SCDs Code Status: LEVEL I, FULL Dispo: From home. Discharge to home today
[2016-10-02 10:53] VITALS: BP 119/62; PULSE 87; TEMP 36.8; O2SAT 93
--- NOTE | 2016-10-14 09:40 | Discharge Summary ---
Orthopedic Discharge Summary Admission Date/Reason Sep 26, 2016 at 13:34 Lumbar Spine Pain. Discharge Date/Disposition Oct 02, 2016 Home Diagnosis Principal Diagnosis: lumbar HNP Secondary Diagnoses/Problems: atelectasis, lung nodule Procedure(s) Performed L3-4 microdiscectomy left Consultations hospitalist Medication Reconciliation New Medications: Albuterol (Ventolin Hfa) 60 Puffs/5400 Mcg Aers 2 PUFF INH Q4 for SOB/Wheezing, #1 INHALER Docusate Sodium (Docusate Sodium) 100 Mg Cap 100 MG PO BID for 30 Days, #60 CAP Oxycodone/Acetaminophen 5MG/325MG (Percocet 5MG/325MG) Tab 1-2 TAB PO Q6H PRN for MODERATE TO SEVERE PAIN, #60 TAB PAIN Prednisone (Prednisone) 20 Mg Tab 40 MG PO DAILY for 3 Days, #6 TAB Continued Medications: Sertraline (Zoloft) 100 Mg Tab 100 MG PO DAILY, TAB Simvastatin (Zocor) 40 Mg Tab 40 MG PO QPM, TAB Thyroid (Pioneer Thyroid) 30 Mg Tab 1 TAB PO DAILY for 90 Days, #90 TAB 1 Refill Referrals Follow up Referrals: Physician Referral - Within 1 Week with Chris Vick Admission Physical Exam As per Admitting History & Physical. Hospital Course She was admitted for pain control due to a severe radiculopathy and a L3-4 HNP. Her pain failed to improve with IV decadron so she underwent a discectomy. Her pain improved immediately but she demonstrated a failure to wean from O2 postop due to COPD and atelectasis, after decadron and pulmonary treatments this improved. An incidental finding of a lung nodule was identified on CT scan with f/u scanning planned locally through her pcp. she was discharged in stable condition Discharge Instructions Please refer to the electronic Patient Visit Report (Discharge Instructions) for additional information.
== END 2016-10-02 14:05 | disposition home or self-care (01) | DRG 515 ==
LOC: C.MSN 13:34
PROVIDERS: ADMIT Orthopaedic Surgery Orthopaedic Surgery of the Spine; ATTEND Orthopaedic Surgery Orthopaedic Surgery of the Spine
PROC: 0QB00ZZ Excision of Lumbar Vertebra, Open Approach (ICD-10-PCS; principal; 2016-10-01)
PROC: 01NB0ZZ Release Lumbar Nerve, Open Approach (ICD-10-PCS; principal; 2016-10-01)
DX: M51.16 Intervertebral disc disorders with radiculopathy, lumbar region (principal); J96.01 Acute respiratory failure with hypoxia; J44.9 Chronic obstructive pulmonary disease, unspecified; R91.8 Other nonspecific abnormal finding of lung field; E78.5 Hyperlipidemia, unspecified; F32.9 Major depressive disorder, single episode, unspecified; E03.9 Hypothyroidism, unspecified; F17.200 Nicotine dependence, unspecified, uncomplicated; Z79.899 Other long term (current) drug therapy; Z82.3 Family history of stroke; Z82.49 Family history of ischemic heart disease and other diseases of the circulatory system